=== PATIENT | male | born 1995 | race Caucasian/White ===

== ENCOUNTER 2021-07-12 10:00 | Outpatient (CLI) | payer SELFPAY ==
[2021-07-12 10:50] LABS: Anion Gap 9 mmol/L (8-16); Blood Urea Nitrogen 15 mg/dL (9-20); Calcium 9.3 mg/dL (8.4-10.2); Carbon Dioxide 28 mmol/L (22-30); Chloride 104 mmol/L (98-107); Estimated Glomerular Filt Rate > 60; Glucose 92 mg/dL (65-110); Potassium 4.2 mmol/L (3.4-5.0); Sodium 141 mmol/L (137-145)
== END 2021-07-12 10:01 | disposition home or self-care (01) ==
DX: F64.9 Gender identity disorder, unspecified (principal)
CPT/HCPCS: 36415; 80048